=== PATIENT | male | born 1990 | race Two or more races ===

== ENCOUNTER 2022-12-17 10:00 | Emergency (ER) | payer OTHER ==
[~2022-12-17] VITALS: Ht 170.2 cm; Wt 77.1 kg
== END 2022-12-17 12:43 | disposition home or self-care (01) ==
LOC: ER 10:00
DX: M79.641 Pain in right hand (principal); M79.631 Pain in right forearm; Z91.013 Allergy to seafood

== ENCOUNTER 2022-12-21 09:13 | Emergency (ER) | payer OTHER ==
[~2022-12-21] VITALS: Ht 170.2 cm; Wt 74.8 kg
== END 2022-12-21 11:40 | disposition home or self-care (01) ==
LOC: ER 09:13
DX: S80.01XA Contusion of right knee, initial encounter (principal); W19.XXXA Unspecified fall, initial encounter; Y93.9 Activity, unspecified; Y92.9 Unspecified place or not applicable